=== PATIENT | male | born 1975 | race Caucasian/White ===

== ENCOUNTER 2020-12-29 20:02 | Emergency (ER) | payer OTHER ==
--- NOTE | 2020-12-29 20:14 | EDM.PDOC ---
ED HPI GENERAL MEDICAL PROBLEM - General Chief Complaint: General Stated Complaint: BAD REACTION TO OTC MEDS Time Seen by Provider: 12/29/20 20:14 - History of Present Illness INITIAL COMMENTS - FREE TEXT/NARRATIVE: 45-year-old male presents the emergency room feeling a little euphoric. Patient took some CBD oil in chewable squares, he only took 1 but now he feels high. He took this to help with joint pain and his joint pain is better. He feels a little anxious and a little paranoid. Other than that he is doing okay and his joint pain is better. Patient denies any other complaints with this most unusual encounter. - Related Data Allergies Allergy/AdvReac Type Severity Reaction Status Date / Time No Known Allergies Allergy Verified 12/29/20 20:21 Home Meds: Home Meds Cholecalciferol (Vitamin D3) [Vitamin D3] 5 tab PO DAILY 12/29/20 [History] ED ROS GENERAL - Review of Systems Review Of Systems: See Below Constitutional: Reports: No Symptoms HEENT: Reports: No Symptoms Respiratory: Reports: No Symptoms Cardiovascular: Reports: No Symptoms GI/Abdominal: Reports: No Symptoms Musculoskeletal: Reports: Other (Joint pain is better) Neurological: Denies: Confusion, Dizziness, Headache Psychiatric: Reports: Anxiety ED EXAM, GENERAL - Physical Exam Exam: See Below Exam Limited By: No Limitations General Appearance: Alert, No Apparent Distress Head: Atraumatic, Normocephalic Neck: Normal Inspection, Supple, Non-Tender, Full Range of Motion Respiratory/Chest: No Respiratory Distress, Lungs Clear, Normal Breath Sounds Cardiovascular: Regular Rate, Rhythm, No Edema, No Murmur Extremities: Normal Inspection, No Pedal Edema Neurological: Alert, Oriented, Normal Cognition Psychiatric: Normal Affect, Normal Mood, Other (He seems to be doing okay) Course - Vital Signs Last Recorded V/S: Last Vital Signs Temp 36.7 C 12/29/20 20:20 Pulse 98 12/29/20 20:20 Resp 20 12/29/20 20:20 BP 150/94 H 12/29/20 20:20 Pulse Ox 98 12/29/20 20:20 - Orders/Labs/Meds Meds: Medications Discontinued Medications Generic Name Dose Route Start Last Admin Trade Name Freq PRN Reason Stop Dose Admin Lorazepam 1 mg 12/29/20 20:30 12/29/20 20:36 Lorazepam 1 Mg Tab PO 12/29/20 20:31 1 mg ONETIME ONE Administration - Re-Assessments/Exams Free Text/Narrative Re-Assessment/Exam: 12/29/20 21:37 The patient received 1 milligram of oral Ativan and feels much better at this point we will discharge him home to rest. Departure - Departure Time of Disposition: 21:38 Disposition: Home, Self-Care 01 Clinical Impression: Adverse reaction to [id number] medication - Discharge Information Referrals: Meghana Gaffney MD [Primary Care Provider] - Forms: ED Department Discharge Additional Instructions: Return to the emergency room with any questions problems or worsening symptoms. Do not drive or return to work within 12 hours of being treated here in the emergency room. Avoid that substance in the future. Sepsis Event Note (ED) - Focused Exam Vital Signs: Vital Signs Temp Pulse Resp BP Pulse Ox 12/29/20 20:20 36.7 C 98 20 150/94 H 98
[2020-12-29] MEDS ORDERED: LORazepam 1 MG Tab PO ONE (20:30)
== END 2020-12-29 21:55 | disposition home or self-care (01) ==
LOC: JD.ED 20:02
DX: F41.9 Anxiety disorder, unspecified (principal); T50.905A Adverse effect of unspecified drugs, medicaments and biological substances, initial encounter
CPT/HCPCS: 99283; A9270

== ENCOUNTER 2021-02-05 20:25 | Emergency (ER) | payer OTHER ==
--- NOTE | 2021-02-05 21:14 | EDM.PDOC ---
ED HPI GENERAL MEDICAL PROBLEM - General Chief Complaint: Upper Extremity Injury/Pain Stated Complaint: HAND INJURY Time Seen by Provider: 02/05/21 20:40 Source of Information: Reports: Patient History Limitations: Reports: No Limitations - History of Present Illness INITIAL COMMENTS - FREE TEXT/NARRATIVE: 45-year-old male presents the emergency department today with complaints of injury of his left middle finger. He states he was cutting wood with a chainsaw today and was just putting it away when the chainsaw kicked back and caught the tip of his left middle finger. He states he applied pressure and proceeded to the emergency department. Left Finger-Middle Pain Score (Numeric/FACES): 8 - Related Data Allergies Allergy/AdvReac Type Severity Reaction Status Date / Time No Known Allergies Allergy Verified 02/05/21 20:40 Home Meds: Home Meds Cholecalciferol (Vitamin D3) [Vitamin D3] 5 tab PO DAILY 12/29/20 [History] Testosterone Propionate 100 mg PO WEEKLY 02/05/21 [History] Past Medical History - Past Health History Medical/Surgical History: Denies Medical/Surgical History Psychiatric History: Reports: PTSD Other Endocrine/Metabolic History: low testosterone - Infectious Disease History Infectious Disease History: Reports: Chicken Pox Social & Family History - Tobacco Use Tobacco Use Status *Q: Unknown Ever Used Tobacco Review of Systems - Review of Systems Review Of Systems: Comprehensive ROS is negative, except as noted in HPI. ED EXAM, GENERAL - Physical Exam Exam: See Below Exam Limited By: No Limitations General Appearance: Alert, WD/WN, No Apparent Distress Ears: Normal External Exam, Hearing Grossly Normal Nose: Normal Inspection Throat/Mouth: Normal Inspection, Normal Lips, Normal Voice, No Airway Compromise Head: Atraumatic, Normocephalic Neck: Normal Inspection, Supple Respiratory/Chest: No Respiratory Distress, No Accessory Muscle Use Cardiovascular: Normal Peripheral Pulses, Regular Rate, Rhythm GI/Abdominal: No Distention (Male) Exam: Deferred Rectal (Males) Exam: Deferred Back Exam: Normal Inspection Extremities: Normal Inspection Neurological: Alert, Oriented, Normal Cognition Psychiatric: Normal Affect, Normal Mood Skin Exam: Warm, Dry, Normal Color, Wound/Incision (Superficial skin flap/laceration noted to the tip of the left middle finger just at the nail bed. Bleeding is controlled.) Lymphatic: No Adenopathy Course - Vital Signs Text/Narrative:: At the time of my assessment, the patient's middle finger has been soaking and cleaning solution. The very tip of the middle finger just at the nailbed has a small superficial flap of skin. The area is approximately a quarter of a centimeter in length. The wound is very superficial. Lap the skin is able to be lifted back however I do not feel that a suture is warranted at this time. There is no bleeding noted from the area. Patient also does have a abrasion noted to the dorsal aspect of his left middle finger. I discussed with the patient that I do not feel sutures warranted at this time and that he could place a bandage over it and use bacitracin to keep the wound clean and healing. Last Recorded V/S: Last Vital Signs Temp 98.2 F 02/05/21 20:41 Pulse 86 02/05/21 20:41 Resp 16 02/05/21 20:41 BP 139/127 H 02/05/21 20:41 Pulse Ox 100 02/05/21 20:41 Departure - Departure Time of Disposition: 21:12 Disposition: Home, Self-Care 01 Condition: Good Clinical Impression: Superficial laceration of finger - Discharge Information Instructions: Laceration Care, Adult, [id number] Additional Instructions: You were seen in the emergency department today after you cut your finger on a chainsaw. Bleeding was controlled. After the wound was cleaned and evaluated there was no need for suturing of the wound. There is no need for antibiotics at this time as well. Wash the wound twice daily with mild soapy water such as Dial or Stephane's baby shampoo. Pat the wound dry and then apply a thin film of bacitracin to the area and apply a bandage. Be sure to keep the wound clean and dry. Watch for any signs and symptoms of infection such as swelling, redness, warmth or pus. Should your condition change do not hesitate returning to the emergency department. Sepsis Event Note (ED) - Evaluation Sepsis Screening Result: No Definite Risk - Focused Exam Vital Signs: Vital Signs Temp Pulse Resp BP Pulse Ox 02/05/21 20:41 98.2 F 86 16 139/127 H 100
== END 2021-02-05 21:23 | disposition home or self-care (01) ==
LOC: JD.ED 20:25
DX: S61.213A Laceration without foreign body of left middle finger without damage to nail, initial encounter (principal); W29.3XXA Contact with powered garden and outdoor hand tools and machinery, initial encounter
CPT/HCPCS: 99282

== ENCOUNTER 2023-08-09 21:20 | Emergency (ER) | payer OTHER ==
[2023-08-09] MEDS ORDERED: Ketorolac 60 MG/2 ML SDV IM ONE (23:07)
== END 2023-08-09 23:23 | disposition home or self-care (01) ==
LOC: JD.ED 21:20
DX: S13.4XXA Sprain of ligaments of cervical spine, initial encounter (principal); V49.40XA Driver injured in collision with unspecified motor vehicles in traffic accident, initial encounter; Y92.410 Unspecified street and highway as the place of occurrence of the external cause
CPT/HCPCS: 70450; 70450-26; 72125; 72125-26; 96372; 99284; 99285; J1885